=== PATIENT | female | born 1940 | race Caucasian/White ===

== ENCOUNTER 2017-06-02 08:00 | Inpatient (IN) | payer MEDICARE, OTHER ==
[2017-05-25 15:25] LABS: BASOPHILS # (AUTO) 0.1 X10'3 (0-0.2); BASOPHILS % (AUTO) 0.9 % (0-1); EOSINOPHILS # (AUTO) 0.6 X10'3 (0-0.9); EOSINOPHILS % (AUTO) 8.1 % (0-6); LYMPHOCYTES # (AUTO) 1.3 X10'3 (1.1-4.8); LYMPHOCYTES % (AUTO) 16.3 % (21-51); MEAN CORPUSCULAR HGB CONC 35.5 % (33.0-36.5); MEAN PLATELET VOLUME 8.8 FL (7.4-10.4); MONOCYTES # (AUTO) 0.6 X10'3 (0-0.9); MONOCYTES % (AUTO) 7.2 % (2-12); NEUTROPHILS # (AUTO) 5.2 X10'3 (1.8-7.7); NEUTROPHILS % (AUTO) 67.5 % (42-75); PRE OP HEMATOCRIT 38.2 % (35.0-45.0); PRE OP HEMOGLOBIN 13.5 g/dL (12.0-16.0); PRE OP PLATELET COUNT 250 X10'3 (140-440); RED BLOOD COUNT 4.11 X10'6 (4.20-5.60); RED CELL DISTRIBUTION WIDTH 12.9 % (11.5-14.5)
[2017-05-25 15:38] LABS: ALBUMIN 4.1 G/DL (3.4-5.0); ALBUMIN/GLOBULIN RATIO 1.1 (1.1-1.5); ALKALINE PHOSPHATASE 71 IU/L (46-116); BLOOD UREA NITROGEN 25 MG/DL (7-18); BUN/CREATININE RATIO 31.3 (6.6-38.0); CALCIUM 9.6 MG/DL (8.5-10.1); CHLORIDE 100 MMOL/L (99-107); PRE OP ALT 23 U/L (30-65); PRE OP ANION GAP 9 (8-16); PRE OP AST 18 U/L (10-37); PRE OP BILIRUB, TOTAL 0.5 MG/DL (0.0-1.0); PRE OP GLUCOSE 127 MG/DL (70-104); PRE OP POTASSIUM 3.8 MMOL/L (3.4-5.1); PRE OP SODIUM 140 MMOL/L (135-145); TOTAL CARBON DIOXIDE 31.2 MMOL/L (24-32); TOTAL PROTEIN 7.9 G/DL (6.4-8.2); eGFR 70 ML/MIN
[2017-05-25 16:54] LABS: CLARITY,URINE CLEAR (Clear); COLOR,URINE YELLOW (Yellow); GLUCOSE, URINE NEGATIVE (Neg); KETONES,URINE NEGATIVE (Neg); LEUKOCYTE ESTERASE ,URINE NEGATIVE (Neg); NITRITES, URINE NEGATIVE (Neg); OCCULT BLOOD,URINE TRACE-LYSED (Neg); PROTEIN,URINE NEGATIVE (Neg); UROBILINOGEN,URINE 0.2 E.U/dL (0.2-1.0)
[2017-05-25 17:00] LABS: UA COLLECTION TYPE CLN CATCH MIDSTREAM
[2017-05-25 17:03] LABS: BACTERIA,URINE NONE SEEN /HPF (Neg); RBC,URINE 0-2 /HPF (0-2); SQUAMOUS EPITHELIAL CELL,UR FEW /LPF (FEW); WBC,URINE 0-4 /HPF (0-4)
[~2017-06-02] VITALS: Ht 175.3 cm; Wt 65.1 kg
[2017-06-02] VITALS (16 sets, daily range): BP systolic 95–152; BP diastolic 49–72
[~2017-06-02 08:00] MED LIST: BRIM5DRO16 EACHEYE; CHOL2000 PO; LACT1CAP65 PO; LISI-600 PO; MELO-102 PO; MULT-1085 PO; OMEG1CAP2 PO; ROPIVAcaine 0.5% (5mg/ml) 30ml vial ONE; TIMO5SOL8 EACHEYE; VANCOMYCIN INJ 1000 MG in NORMAL SALINE 250ml IV.SOLN IV ONE; cefazolin/dext.iso 2gm/50ml 50 ML IV ONE; famotidine 20mg tablet PO ONE; ketorolac trometh. 30mg/ml inj. ONE; ringers solution, lacted 1,000 ML IV SCH
[2017-06-02] MEDS ORDERED: BUPIVAcaine/dex-water/PF 7.5 mg/ml 2ml ampul ONE (10:00)
[2017-06-02] MEDS ORDERED: epiNEPHrine 1 mg/ml inj ONE ×2 (10:00→10:34)
[2017-06-02] MEDS ORDERED: cloNIDine hcl/PF 100mcg/ml inj ONE (10:00)
[2017-06-02] MEDS ORDERED: MIDAZolam 1mg/ml 10ml vial ONE (10:11)
[2017-06-02] MEDS ORDERED: MORPHINE SULFATE/PF 0.5 MG/ML 10ML AMPUL ONE (10:12)
[2017-06-02] MEDS ORDERED: propofol inj 20 ML IV ONE (10:33)
[2017-06-02] MEDS ORDERED: 0.9 % SODIUM CHLORIDE 10 ML VIAL ONE (11:45)
[2017-06-02] MEDS ORDERED: BUPIVAcaine/PF 2.5 mg/ml (0.25%) 30ml vial ONE (11:45)
[2017-06-02] MEDS ORDERED: dexamethasone sod phosphate 4mg/ml inj. ONE (11:45)
[2017-06-02] MEDS ORDERED: naloxone 2mg/2ml inj 1.3 MG in normal saline 500ml IV soln 500 ML IV PRN (12:22)
[2017-06-02] MEDS ORDERED: ringers solution, lacted 1,000 ML IV SCH (12:22)
[2017-06-02] MEDS ORDERED: ondansetron/PF 4mg/2ml inj IV PRN ×2 (12:25)
[2017-06-02] MEDS ORDERED: proCHLORperazine 10 MG/2 ml inj IV PRN (12:25)
[2017-06-02] MEDS ORDERED: acetaminophen 1,000mg/100ml IV 100 ML IV PRN (12:25)
[2017-06-02] MEDS ORDERED: morphine 2 MG/ML inj. syringe IV PRN ×2 (12:25)
[2017-06-02] MEDS ORDERED: diphenhydrAMINE 50 mg/ml inj IV PRN (12:25)
[2017-06-02] MEDS ORDERED: meperidine/PF 25mg/ml syringe IV ONE (12:25)
[2017-06-02] MEDS ORDERED: meperidine/PF 25mg/ml syringe IV PRN ×2 (12:25)
[2017-06-02] MEDS: potassium cl 20mEq in 1/2 NS 1,000 ML IV SCH ×2 (12:42→19:45)
[2017-06-02] MEDS ORDERED: acetaminophen 325mg tablet PO PRN (12:45)
[2017-06-02] MEDS ORDERED: naloxone 0.4 mg/ml inj IV PRN (12:45)
[2017-06-02] MEDS ORDERED: magnesium hydroxide 30ml (MOM) UD suspension PO PRN (12:45)
[2017-06-02] MEDS ORDERED: diphenhydrAMINE 25mg capsule PO PRN (12:45)
[2017-06-02] MEDS ORDERED: HYDROcodone/acetaminophen 10/325mg tab PO PRN (12:45)
[2017-06-02] MEDS ORDERED: metoclopramide 5 mg/ml inj IV PRN (12:45)
[2017-06-02] MEDS ORDERED: CADD PCA waste documentation MC PRN (12:45)
[2017-06-02] MEDS ORDERED: bisacodyl 10mg suppository rectal RC PRN (12:45)
[2017-06-02] MEDS: HYDROmorphone/NS 1 mg/ml CADD 50 ML IV SCH ×6 (13:00→21:00)
[2017-06-02] MEDS: ondansetron/PF 4mg/2ml inj IV PRN (15:06)
[2017-06-02] MEDS: cefazolin 1gm/NS 100mL 100 ML IV SCH (15:08)
[2017-06-02] MEDS ORDERED: vancomycin/NS 1 GM ADD-VANTAGE 250 ML IV SCH (20:00)
[2017-06-02] MEDS: brimonidine 0.2% 5 ML ophthalmic drops EACHEYE SCH (20:00)
[2017-06-02] MEDS: sennosides/docusate sodium tablet PO SCH (20:18)
[2017-06-02] MEDS: sennosides 8.6mg tablet PO SCH (20:19)
[2017-06-02] MEDS: celeCOXIB 100mg capsule PO SCH (20:20)
[2017-06-02] MEDS: ascorbic acid 500mg tablet PO SCH (20:20)
[2017-06-02] MEDS: diphenhydrAMINE 25mg capsule PO PRN (20:30)
[2017-06-03] VITALS (8 sets, daily range): BP systolic 80–117; BP diastolic 41–68
[2017-06-03] MEDS: cefazolin 1gm/NS 100mL 100 ML IV SCH (00:43)
[2017-06-03] MEDS: potassium cl 20mEq in 1/2 NS 1,000 ML IV SCH ×3 (04:42→16:20)
[2017-06-03] MEDS: HYDROcodone/acetaminophen 10/325mg tab PO PRN ×3 (05:35→20:07)
[2017-06-03 05:46] LABS: BASOPHILS % (AUTO) 0.1 % (0-1); EOSINOPHILS % (AUTO) 0 % (0-6); HEMATOCRIT 26.9 % (35.0-45.0); HEMOGLOBIN 9.3 g/dl (12.0-16.0); LYMPHOCYTES # (AUTO) 0.7 X10'3 (1.1-4.8); LYMPHOCYTES % (AUTO) 10.7 % (21-51); MEAN CORPUSCULAR HEMOGLOBIN 32.4 PG (27.0-31.0); MEAN CORPUSCULAR HGB CONC 34.4 % (33.0-36.5); MEAN CORPUSCULAR VOLUME 94.2 FL (78-98); MEAN PLATELET VOLUME 8.9 FL (7.4-10.4); MONOCYTES # (AUTO) 0.6 X10'3 (0-0.9); MONOCYTES % (AUTO) 8.6 % (2-12); NEUTROPHILS # (AUTO) 5.2 X10'3 (1.8-7.7); NEUTROPHILS % (AUTO) 80.6 % (42-75); PLATELET COUNT 178 X10'3 (140-440); RED BLOOD COUNT 2.85 X10'6 (4.20-5.60); RED CELL DISTRIBUTION WIDTH 13.1 % (11.5-14.5); WHITE BLOOD COUNT 6.4 X10'3 (4.5-11.0)
[2017-06-03 07:39] LABS: ANION GAP 7 (8-16); CHLORIDE 104 MMOL/L (99-107); POTASSIUM 4.7 MMOL/L (3.5-5.1); SODIUM 137 MMOL/L (135-145); TOTAL CARBON DIOXIDE 26.2 MMOL/L (24-32)
[2017-06-03] MEDS ORDERED: ENOX40DI11 SQ (08:00)
[2017-06-03] MEDS ORDERED: HYDR-3972 PO (08:00)
[2017-06-03] MEDS: ascorbic acid 500mg tablet PO SCH ×2 (08:07→20:07)
[2017-06-03] MEDS: multivitamins, therapeutics tablet PO SCH (08:07)
[2017-06-03] MEDS: sennosides/docusate sodium tablet PO SCH ×2 (08:08→20:00)
[2017-06-03] MEDS: enoxaparin 40mg/0.4ml syringe SQ SCH (08:08)
[2017-06-03] MEDS: lisinopril 10 MG tablet PO SCH (08:08)
[2017-06-03] MEDS: celeCOXIB 100mg capsule PO SCH ×2 (08:08→20:08)
[2017-06-03] MEDS: timolol XE 0.5% ophth GEL forming sol 5ml EACHEYE SCH (10:18)
[2017-06-03] MEDS: brimonidine 0.2% 5 ML ophthalmic drops EACHEYE SCH ×2 (10:18→20:08)
[2017-06-03] MEDS: sennosides 8.6mg tablet PO SCH (21:00)
[2017-06-03] MEDS: diphenhydrAMINE 25mg capsule PO PRN (21:43)
[2017-06-04] MEDS: HYDROcodone/acetaminophen 10/325mg tab PO PRN ×2 (02:39→11:19)
[2017-06-04] MEDS: ondansetron/PF 4mg/2ml inj IV PRN (02:39)
[2017-06-04] MEDS: potassium cl 20mEq in 1/2 NS 1,000 ML IV SCH (04:42)
[2017-06-04 06:00] VITALS: BP 107/58
[2017-06-04 06:08] LABS: BASOPHILS # (AUTO) 0.1 X10'3 (0-0.2); EOSINOPHILS # (AUTO) 0.5 X10'3 (0-0.9); EOSINOPHILS % (AUTO) 9.5 % (0-6); HEMATOCRIT 23.9 % (35.0-45.0); HEMOGLOBIN 8.4 g/dl (12.0-16.0); LYMPHOCYTES # (AUTO) 1.2 X10'3 (1.1-4.8); LYMPHOCYTES % (AUTO) 23.2 % (21-51); MEAN CORPUSCULAR HEMOGLOBIN 32.9 PG (27.0-31.0); MEAN CORPUSCULAR HGB CONC 35.1 % (33.0-36.5); MEAN CORPUSCULAR VOLUME 93.9 FL (78-98); MEAN PLATELET VOLUME 8.7 FL (7.4-10.4); MONOCYTES # (AUTO) 0.5 X10'3 (0-0.9); MONOCYTES % (AUTO) 10.4 % (2-12); NEUTROPHILS # (AUTO) 2.9 X10'3 (1.8-7.7); NEUTROPHILS % (AUTO) 55.9 % (42-75); PLATELET COUNT 143 X10'3 (140-440); RED BLOOD COUNT 2.55 X10'6 (4.20-5.60); RED CELL DISTRIBUTION WIDTH 13.1 % (11.5-14.5); WHITE BLOOD COUNT 5.2 X10'3 (4.5-11.0)
[2017-06-04] MEDS: sennosides/docusate sodium tablet PO SCH (08:00)
[2017-06-04] MEDS: timolol XE 0.5% ophth GEL forming sol 5ml EACHEYE SCH (08:40)
[2017-06-04] MEDS: celeCOXIB 100mg capsule PO SCH (08:40)
[2017-06-04] MEDS: brimonidine 0.2% 5 ML ophthalmic drops EACHEYE SCH (08:40)
[2017-06-04] MEDS: multivitamins, therapeutics tablet PO SCH (08:41)
[2017-06-04] MEDS: lisinopril 10 MG tablet PO SCH (08:41)
[2017-06-04] MEDS: ascorbic acid 500mg tablet PO SCH (08:41)
[2017-06-04] MEDS: enoxaparin 40mg/0.4ml syringe SQ SCH (08:42)
[2017-06-04 10:00] VITALS: BP 93/51
[2017-06-04 10:33] VITALS: BP 109/51
== END 2017-06-04 11:20 | disposition home or self-care (01) | DRG 470 ==
LOC: PAS IN 08:00 → EDSTATUS 10:00 → ORTHO 4S 14:13
PROVIDERS: ADMIT Orthopaedic Surgery; ATTEND Orthopaedic Surgery
PROC: 3E0T3BZ Introduction of Anesthetic Agent into Peripheral Nerves and Plexi, Percutaneous Approach (ICD-10-PCS; 2017-06-02)
PROC: 0SRB0JZ Replacement of Left Hip Joint with Synthetic Substitute, Open Approach (ICD-10-PCS; principal; 2017-06-02 10:03)
DX: M16.0 Bilateral primary osteoarthritis of hip (principal); D62 Acute posthemorrhagic anemia; H40.9 Unspecified glaucoma; I10 Essential (primary) hypertension; Z79.899 Other long term (current) drug therapy; Z90.710 Acquired absence of both cervix and uterus
CPT/HCPCS: 36415; 73502; 76001; 80051; 80053; 81001; 85025; 85610; 85730; 86885; 86900; 86901; 87070; 97110; 97116; 97161; 97530; A6250; A6255; A6258; A6446; A6449; A6454; A7000; C1758; C1776; J0171; J0690; J0735; J1100; J1170; J1644; J1650; J1885; J2250; J2274; J2405; J2704; J2795; J3370; J3490; J7030; J7120; Q0163